=== PATIENT | female | born 1980 | race Two or more races ===

== ENCOUNTER 2019-11-20 16:54 | Emergency (ER) | payer MEDICAID ==
[2019-11-20] VITALS (8 sets, daily range): BP systolic 115–144; BP diastolic 65–84
[~2019-11-20] VITALS: Ht 165.1 cm; Wt 125.0 kg
--- NOTE | 2019-11-20 17:35 | NUR ---
Pt came via ambulance due to vaginal bleeding that has been ongoing since . Today, Pt states that she had increased bleeding, cramping, and weakness. Pt has received 2 blood transfusions since bleeding began in October, the most recent being yesterday at [facility]. Pt states that she bleeds through 4 pads an hour. Pt pale, cool, and weak. Placed on neon installer.
--- NOTE | 2019-11-20 18:03 | NUR ---
DR DUNLAP AT BEDSIDE TO [facility] PT
[2019-11-20] MEDS: PLEASE ENTER ALLERGIES MC SCH ×3 (18:10→22:01)
--- NOTE | 2019-11-20 18:24 | NUR ---
Pt to ultrasound
[2019-11-20] MEDS ORDERED: SODIUM CHLORIDE 0.9% 1,000ML IVBOLUS ONE (18:30)
[2019-11-20 18:37] LABS: ALANINE AMINOTRANSFERASE 15 U/L (12-78); ALBUMIN 2.3 g/dL (3.4-5.0); ANION GAP 7 mmol/L (5-15); CALCIUM 7.8 mg/dL (8.5-10.1); CHLORIDE 107 mmol/L (98-107); CREATININE 1.11 mg/dL (0.55-1.02)
[2019-11-20 18:41] LABS: ALKALINE PHOSPHATASE 72 U/L (45-117); BILIRUBIN,TOTAL 0.2 mg/dL (0.2-1.0); TOTAL PROTEIN 6.4 g/dL (6.4-8.2)
[2019-11-20 18:46] LABS: MEAN CORPUSCULAR HEMOGLOBIN 24.7 pg (27.0-34.8); MEAN CORPUSCULAR HGB CONC 31.5 g/dL (32.4-35.8); MEAN CORPUSCULAR VOLUME 78.3 fL (80-100); MEAN PLATELET VOLUME 6.4 fL (7.4-10.4); PLATELET COUNT 571 x10^3/uL (130-400); RED BLOOD COUNT 2.61 x10^6/uL (3.82-5.3); RED CELL DISTRIBUTION WIDTH 17.3 % (9.6-15.2)
[2019-11-20 18:50] LABS: BASOPHILS # (AUTO) 0.07 x10^3/uL (0-0.1); BASOPHILS % (AUTO) 1 % (0-1); EOSINOPHILS # (AUTO) 0.23 x10^3/uL (0-0.4); EOSINOPHILS % (AUTO) 2 % (1-7); LYMPHOCYTES # (AUTO) 3.04 x10^3/uL (1-3.4); LYMPHOCYTES % (AUTO) 21 % (22-44); MD NO; MONOCYTES % (AUTO) 4 % (2-9); NEUTROPHILS % (AUTO) 73 % (42-75)
--- NOTE | 2019-11-20 18:55 | NUR ---
REPORT RECEIVED FROM ADRIANO CURIEL. PLAN OF CARE DISCUSSED
[2019-11-20] MEDS ORDERED: SODIUM CHLORIDE FLUSH 10ML SYR IVF ONE (19:00)
--- NOTE | 2019-11-20 19:02 | NUR ---
Gave report to Matilde Mccain RN
--- NOTE | 2019-11-20 19:30 | NUR ---
PATIENT BACK FROM US. PATIENT HAD NEAR SYNCOPAL EPISODE IN US. ERP TO ROOM AT THIS TIME FOR PELVIC EXAM. BLOOD SLIP SENT. LAB TO ROOM FOR RE-TYPE AND SCREEN
--- NOTE | 2019-11-20 19:50 | NUR ---
prbc infusion started
--- NOTE | 2019-11-20 20:54 | NUR ---
FIRST PRBC INFUSION COMPLETE. WAITING FOR SECOND UNIT TO ARRIVE FROM BLOOD BANK
--- NOTE | 2019-11-20 20:55 | NUR ---
PATIENT ON BEDPAN AT THIS TIME
--- NOTE | 2019-11-20 21:34 | NUR ---
CUSTOMER TRAINER IN ROOM FOR [facility]
[2019-11-20] MEDS ORDERED: MEDROXYPROGESTERONE ACETATE 5 MG TABLET PO ONE (21:45)
--- NOTE | 2019-11-20 22:02 | NUR ---
SECOND UNIT PRBC COMPLETED. PATIENT MEDICATED PER EMAR
--- NOTE | 2019-11-20 23:46 | NUR ---
CLAY THROWER TO ROOM FOR REPEAT HGB/HCT, PATIENT TO BE DISCHARGED AFTER RESULTS
--- NOTE | 2019-11-21 00:14 | NUR ---
Patient given discharge instructions and they have confirmed that they understand the instructions. Patient ambulatory with steady gait.
[2019-11-21 00:15] VITALS: BP 139/84
== END 2019-11-21 00:27 | disposition home or self-care (01) ==
LOC: ED 20:29
DX: N92.4 Excessive bleeding in the premenopausal period (principal); D50.0 Iron deficiency anemia secondary to blood loss (chronic); I49.3 Ventricular premature depolarization
CPT/HCPCS: 36415; 36430; 76830; 80053; 84703; 85014; 85018; 85025; 86850; 86900; 86923; 93005; 96360; 99291; J7030; P9016